=== PATIENT | male | born 1995 | race Caucasian/White ===

== ENCOUNTER 2021-09-10 19:29 | Emergency (ER) | payer SELFPAY ==
[~2021-09-10] VITALS: Ht 175.3 cm; Wt 86.0 kg
--- NOTE | 2021-09-10 20:16 | PHYS DOC ---
Past History Past Surgical History: No Surgical History (TYRON OLIVARES APRN) General Adult EDM: Chief Complaint: FINGER INJURY HPI: HPI: Patient is a 26-year-old male being seen in the ER for right third finger injury and obvious deformity. Patient reports he was playing flag football when someone ran into it. He rates his pain 5 out of 10. No radiation of pain. No treatment prior to arrival. He did denies any decreased sensation to his extremity. (TYRON OLIVARES APRN) Review of Systems: Review of Systems: Musculoskeletal: See HPI Integument: See HPI Neurologic: See HPI (TYRON OLIVARES APRN) Allergies: Allergies: Allergies Coded Allergies Type Severity Reaction Last Updated Verified latex Allergy Unknown 09/10/21 Yes (TYRON OLIVARES APRN) Physical Exam: PE: Constitutional: Well developed, well nourished, no acute distress, non-toxic appearance. [] HENT: Normocephalic, atraumatic Eyes: PERRL, EOMI, conjunctiva normal, no discharge. [] Neck: Normal range of motion, no stridor Cardiovascular: Normal peripheral perfusion Lungs & Thorax: Normal work of breathing, no tachypnea Abdomen: Soft and flat Skin: Warm, dry, no erythema, no rash no wounds. [] Back: Motion Extremities: No tenderness, no cyanosis, no clubbing, ROM intact, no edema. Right third finger, obvious deformity of DIP joint, neuro intact, decreased rang e of motion of DIP joint due to dislocation, full range of motion of MCP and PIP joint, no nailbed injury Neurologic: Alert and oriented X 3, normal motor function, normal sensory function, no focal deficits noted. [] Psychologic: Affect normal, judgement normal, mood normal. [] (TYRON OLIVARES APRN) Current Patient Data: Vital Signs: Vital Signs Date Time Temp Pulse Resp B/P (MAP) Pulse Ox O2 Delivery O2 Flow Rate FiO2 09/10/21 19:45 98.3 73 18 98 (TYRON OLIVARES APRN) EKG: EKG: [] (TYRON OLIVARES APRN) Radiology/Procedures: Radiology/Procedures: []PROCEDURE: FINGER(S) RIGHT Right third finger 3 views. HISTORY: Injury, deformity 3 views were taken of the right third finger. There is a comminuted angulated fracture of the distal phalanx of the right third finger. No other fracture is noted. IMPRESSION: 1. Comminuted angulated fracture distal phalanx right third finger. Electronically signed by: Maeve Sanchez MD (09/10/2021 8:58 PM) [facility] [place] DICTATED AND SIGNED BY: MAEVE SANCHEZ MD DATE: 09/10/212056 CC: EMERGENCY,DEPARTMENT; PCP,NO; KITA CARMONA DO ~MTH0 0 (TYRON OLIVARES APRN) Heart Score: C/O Chest Pain: N/A Risk Factors: Risk Factors: DM, Current or recent (<one month) smoker, HTN, HLP, family history of CAD, obesity. Risk Scores: Score 0 - 3: 2.5% MACE over next 6 weeks - Discharge Home Score 4 - 6: 20.3% MACE over next 6 weeks - Admit for Clinical Observation Score 7 - 10: 72.7% MACE over next 6 weeks - Early Invasive Strategies (TYRON OLIVARES APRN) Course & Med Decision Making: Course & Med Decision Making Pertinent Labs and Imaging studies reviewed. (See chart for details) [] Patient is being seen in the ER for a right third finger injury. He has an obvious deformity to his DIP joint. An x-ray was performed that showed commin uted angulated fracture of the distal phalanx of the right third finger. Digital block was performed with 2% lidocaine with epi and the finger was reduced. Patient tolerated procedure. Neuro intact pre and post procedure. An aluminum finger splint was placed. Patient advised to follow-up with hand surgery and given information for [facility]. I discussed with patient all findings and diagnostic testing as well as the need to follow-up with PCP for further evaluation and treatment or return to the ER if any new or worsening symptoms. Strict return precautions were also discussed at length. Patient voiced understanding and agreement with the plan. Patient is hemodynamically stable at the time of disposition. (TYRON OLIVARES APRN) Dragon Disclaimer: Dragon Disclaimer: This electronic medical record was generated, in whole or in part, using a voice recognition dictation system. (TYRON OLIVARES APRN) Departure Departure: Impression: Primary Impression: Dislocation of distal interphalangeal (DIP) joint of finger Qualified Codes: S63.299A - Dislocation of distal interphalangeal joint of unspecified finger, initial encounter Additional Impression: Phalanx, distal fracture of finger Qualified Codes: S62.632A - Displaced fracture of distal phalanx of right middle finger, initial encounter for closed fracture Disposition: HOME / SELF CARE / HOMELESS Condition: GOOD Referrals: PCP,NO (PCP) Patient Instructions: Finger Dislocation, Finger Fracture Additional Instructions: You were seen in the emergency department for a right third finger injury. You have a fracture no dislocation to that finger. The dislocation was reduced in the emergency department. You can apply ice for your swelling. Take Tylenol or ibuprofen at home. Continue to wear the aluminum finger splint for stabilization. You will need to follow-up with hand surgery. You can call [phone] to set up an appointment. I would advise you to call them tomorrow. Please return to the emergency department if you have worsening of your pain, any new injury, decreased sensation to extremity, cold or blue finger, or decreased range of motion. EMERGENCY DEPARTMENT GENERAL DISCHARGE INSTRUCTIONS Thank you for coming to [facility] (ED) today and trusting us with you care. We trust that you had a positivie experience in our Emergency Department. If you wish to speak to the department management, you may call the director at [phone]. YOUR FOLLOW UP INSTRUCTIONS ARE FOLLOWS: 1. Do you have a private Doctor? If you do not have a private doctor, please ask for a resource list of physicians or clinics that may be able to assist you with follow up care. 2. The Emergency Physician has interpreted your x-rays. The X-Ray specialist will also review them. If there is a change in the findings, you will be notified in 48 hours when at all possible. 3. A lab test or culture has been done, your results will be reviewed and you will be notified if you need a change in treatment. ADDITIONAL INSTRUCTIONS AND INFORMATION: 1. Your care today has been supervised by a physician who is specially trained in emergency care. Many problems require more than one evaluation for a complete diagnosis and treatment. We recommend that you schedule your follow up appointment as recommended to ensure complete treatment of you illness or injury. If you are unable to obtain follow up care and continue to have a problem, or if your condition worsens, we recommend that you return to the ED. 2. We are not able to safely determine your condition over the phone nor are we able to give sound medical advice over the phone. For these safety reasons, if you call for medical advice we will ask you to come to the ED for further evaluation. 3. If you have any questions regarding these discharge instructions please call the ED at [phone]. SAFETY INFORMATION: In the interest of safety, wellness, and injury prevention; we encourage you to wear your sealbelt, if you smoke; quite smoking, and we encourage family to use a protective helmet for bicycling and other sporting events that present an increased risk for head injury. IF YOUR SYMPTOMS WORSEN OR NEW SYMPTOMS DEVELOP, OR YOU HAVE CONCERNS ABOUT YOUR CONDITION; OR IF YOUR CONDITION WORSENS WHILE YOU ARE WAITING FOR YOUR FOLLOW UP APPOINTMENT; EITHER CONTACT YOUR PRIMARY CARE DOCTOR, THE PHYSICIAN WHOSE NAME AND NUMBER YOU WERE GIVEN, OR RETURN TO THE ED IMMEDIATELY. Attending Signature Attending Signature I have reviewed the PA/[employer] SUPERVISOR's note and plan of care. I was available for consultation as needed during the patient's visit in the emergency department. I agree with the clinical impression, plan, and disposition. (KITA CARMONA DO) TYRON OLIVARES APRN Sep 10, 2021 20:16 KITA CARMONA DO Sep 11, 2021 01:42
[2021-09-10] MEDS ORDERED: LIDOCAINE 2%/EPI 1:100,000 20 ML VIAL. IJ ONE (20:30)
--- NOTE | 2021-09-10 21:01 | RAD ---
Right third finger 3 views. HISTORY: Injury, deformity 3 views were taken of the right third finger. There is a comminuted angulated fracture of the distal phalanx of the right third finger. No other fracture is noted. IMPRESSION: 1. Comminuted angulated fracture distal phalanx right third finger. Electronically signed by: Magdi Shah MD (09/10/2021 8:58 PM) [facility]
== END 2021-09-10 21:35 | disposition home or self-care (01) ==
LOC: ER 19:29
DX: S63.292A Dislocation of distal interphalangeal joint of right middle finger, initial encounter (principal); X58.XXXA Exposure to other specified factors, initial encounter; Y93.66 Activity, soccer; Y92.89 Other specified places as the place of occurrence of the external cause; Y99.8 Other external cause status
CPT/HCPCS: 29130; 73140; 99283